=== PATIENT | male | born 1990 | race Caucasian/White ===

== ENCOUNTER 2017-06-13 13:34 | Emergency (ER) | payer OTHER ==
[~2017-06-13] VITALS: Ht 188 cm; Wt 64.0 kg
[2017-06-13 13:46] VITALS: BP 114/58; PULSE 61; RESP 16; TEMP 98.5; O2SAT 97
[2017-06-13] MEDS ORDERED: SODIUM CHLOR 0.9% 1000 ML INJ 1,000 ML IV SCH (14:34)
[2017-06-13] MEDS ORDERED: MORPHINE SULFATE 4 MG/ML INJ IV PUSH ONE ×2 (14:45→15:45)
[2017-06-13] MEDS ORDERED: ONDANSETRON HCL 4 MG/2 ML VIAL IVP ONE (14:45)
[2017-06-13] MEDS ORDERED: FAMOTIDINE 20 MG/2 ML VIAL IV PUSH ONE (14:45)
[2017-06-13] MEDS ORDERED: SODIUM CHLORIDE 0.9% FLUSH 10 ML FLUSH IV FLUSH PRN (14:45)
[2017-06-13 15:03] LABS: AUTOMATED NEUTROPHIL # 10.3 TH/MM3 (1.8-7.7); BASOPHIL # 0.4 TH/MM3 (0-0.2); BASOPHIL % 3.1 % (0.0-2.0); EOSINOPHIL # 0.1 TH/MM3 (0-0.4); EOSINOPHIL % 0.8 % (0.0-4.0); HEMATOCRIT 49.3 % (39.0-51.0); LYMPH % 8.4 % (9.0-44.0); MEAN CELL VOLUME 92.5 FL (80.0-100.0); MEAN CORPUSCULAR HEMOGLOBIN 31.2 PG (27.0-34.0); MEAN CORPUSCULAR HGB CONC 33.7 % (32.0-36.0); MONO % 5.9 % (0.0-8.0); NEUT % 81.8 % (16.0-70.0); PLATELET COUNT 176 TH/MM3 (150-450); RED BLOOD COUNT 5.33 MIL/MM3 (4.50-5.90); RED CELL DISTRIBUTION WIDTH 11.6 % (11.6-17.2); WHITE BLOOD COUNT 12.5 TH/MM3 (4.0-11.0)
[2017-06-13 15:07] LABS: HEMO FLAGS DIFF FINAL
[2017-06-13 15:18] LABS: CHLORIDE 102 MEQ/L (98-107); POTASSIUM 4.4 MEQ/L (3.5-5.1); SODIUM (NA) 138 MEQ/L (136-145)
[2017-06-13 15:23] LABS: ANION GAP 6 MEQ/L (5-15); BICARBONATE 30.3 MEQ/L (21.0-32.0)
[2017-06-13 15:24] LABS: BLOOD UREA NITROGEN 14 MG/DL (7-18)
[2017-06-13 15:26] LABS: ALT (GPT) 22 U/L (12-78); AST (GOT) 15 U/L (15-37); GLOMERULAR FILTRATION RATE 100 ML/MIN (>89)
[2017-06-13 15:28] LABS: TOTAL BILIRUBIN ADULT 0.7 MG/DL (0.2-1.0)
[2017-06-13 15:29] LABS: ALKALINE PHOSPHATASE 62 U/L (45-117)
--- NOTE | 2017-06-13 15:38 | PD ---
HPI Chief Complaint: GI Complaint Time Seen by Provider: 13:53 Travel History International Travel<30 days: No Contact w/Intl Traveler<30days: No Traveled to known affect area: No History of Present Illness HPI The patient is a 27-year-old male who presents to the emergency department via private vehicle for nausea, vomiting, and abdominal pain. The patient states he had hamburger to eat last night that he left that on his kitchen counter for 4 hours to do Major. The patient ate without difficulty, however, awakened at midnight with epigastric abdominal pain and subsequent nausea and vomiting. The patient has persistent nausea and vomiting with mild epigastric abdominal pain that radiates to the back. He denies any associated diarrhea. He denies any fever, chills, sweats, or previous abdominal surgeries. He denies any sick contacts at home. He denies any recent international travel. Symptoms are moderate, possibly exacerbated after eating ground beef, and there are no current alleviating factors. PFSH Past Medical History Arthritis: No Asthma: Yes Autoimmune Disease: No Bipolar Disorder: Yes Anxiety: Yes Depression: Yes (HX OF CUTTING) Heart Rhythm Problems: No Cancer: No Cardiovascular Problems: Yes (IRREG HR) High Cholesterol: No Chest Pain: No Congestive Heart Failure: No COPD: No Cerebrovascular Accident: No Diabetes: No Diminished Hearing: No Endocrine: No Gastrointestinal Disorders: No GERD: No Genitourinary: No Headaches: Yes Hepatitis: No Hiatal Hernia: No Immune Disorder: No Implanted Vascular Access Dvce: Yes Kidney Stones: No Medical other: Yes (NODULES IN SINUS CAVITY, SINUS SURGERY 12/11/11) Musculoskeletal: Yes Neurologic: Yes Psychiatric: Yes (SCHIZOAFFECTIVE D/O & PANIC ATTACKS, MULTIPLE PERSONALITY DISORDER.) Respiratory: Yes (HX ASTHMA) Integumentary: Yes (MRSA LEFT THUMB SEVERAL YEARS AGO. NONE SINCE THEN.) Immunizations Current: Yes Migraines: Yes Myocardial Infarction: No Renal Failure: No Schizophrenia: Yes Seizures: Yes Sleep Apnea: No Thyroid Disease: No Ulcer: No Tetanus Vaccination: < 5 Years PNEUMOCCOCAL Vaccine (Year): 2 Past Surgical History Abdominal Surgery: No AICD: No Appendectomy: Yes Arteriovenous Shunt: No Body Medical Devices: PIERCING X 2 TO LOWER LIP Cardiac Surgery: No Cholecystectomy: No Ear Surgery: No Endocrine Surgery: No Eye Surgery: No Genitourinary Surgery: No Gynecologic Surgery: No Insulin Pump: No Joint Replacement: No Neurologic Surgery: No Pacemaker: No Thoracic Surgery: No Tonsillectomy: Yes (AND ADENOIDS) Other Surgery: Yes (MRSA ON RIGHT TUMB) Social History Alcohol Use: Yes (5-6 BEERS 2X WEEKLY; LAST DRINK 08/21/15) Tobacco Use: Yes (1/2 PPD) Substance Use: Yes (HX OF MARIJUANA, METH, "SHROOMS"; DENIES CURRENT USE) Allergies-Medications (Allergen,Severity, Reaction): Coded Allergies: cinnamon (Unverified Allergy, Severe, ANAPHALAXIS, 06/13/17) haloperidol (Unverified Adverse Reaction, Severe, DYSTONIA, 06/13/17) *MDRO Multi-Drug Resistant Organism (Verified Adverse Reaction, Unknown, ) MRSA (wound) 2008 Reported Meds & Prescriptions Reported Meds & Active Scripts Active No Active Prescriptions or Reported Medications Review of Systems Except as stated in HPI: all other systems reviewed are Neg General / Constitutional: No: Fever Cardiovascular: No: Chest Pain or Discomfort Respiratory: No: Shortness of Breath Gastrointestinal: Positive: Nausea, Vomiting, Abdominal Pain, No: Diarrhea, Constipation, Changes in Bowel Habits Genitourinary: No: Dysuria Musculoskeletal: No: Myalgias Physical Exam Narrative GENERAL: Awake, alert, pleasant 27-year-old male who appears his stated age and is in no acute respiratory distress. SKIN: Focused skin assessment warm/dry. HEAD: Atraumatic. Normocephalic. EYES: Pupils equal and round. No scleral icterus. No injection or drainage. ENT: No nasal bleeding or discharge. Slightly dry mucous members. NECK: Trachea midline. No JVD. CARDIOVASCULAR: Regular rate and rhythm. No murmur appreciated. RESPIRATORY: No accessory muscle use. Clear to auscultation. Breath sounds equal bilaterally. GASTROINTESTINAL: Abdomen soft, minimal epigastric tenderness. No rebound tenderness, guarding, rigidity. Negative Flores's. Negative McBurney's. Back: No CVA tenderness. MUSCULOSKELETAL: No obvious deformities. No clubbing. No cyanosis. No edema. NEUROLOGICAL: Awake and alert. No obvious cranial nerve deficits. Motor grossly within normal limits. Normal speech. PSYCHIATRIC: Appropriate mood and affect; insight and judgment normal. Data Data Last Documented VS Vital Signs Date Time Temp Pulse Resp B/P (MAP) Pulse Ox O2 Delivery O2 Flow Rate FiO2 9/28/17 13:46 98.5 61 16 114/58 (76) 97 Room Air Orders Orders Complete Blood Count With Diff (06/13/17 14:34) Comprehensive Metabolic Panel (06/13/17 14:34) Lipase (06/13/17 14:34) Iv Access Insert/Monitor (06/13/17 14:34) Ecg Monitoring (06/13/17 14:34) Oximetry (06/13/17 14:34) Morphine Inj (Morphine Inj) (06/13/17 14:45) Ondansetron Inj (Zofran Inj) (06/13/17 14:45) Sodium Chlor 0.9% 1000 Ml Inj (Ns 1000 M (06/13/17 14:34) Sodium Chloride 0.9% Flush (Ns Flush) (06/13/17 14:45) Famotidine Inj (Pepcid Inj) (06/13/17 14:45) Labs Laboratory Tests Test 06/13/17 14:55 White Blood Count 12.5 TH/MM3 Red Blood Count 5.33 MIL/MM3 Hemoglobin 16.6 GM/DL Hematocrit 49.3 % Mean Corpuscular Volume 92.5 FL Mean Corpuscular Hemoglobin 31.2 PG Mean Corpuscular Hemoglobin Concent 33.7 % Red Cell Distribution Width 11.6 % Platelet Count 176 TH/MM3 Mean Platelet Volume 9.3 FL Neutrophils (%) (Auto) 81.8 % Lymphocytes (%) (Auto) 8.4 % Monocytes (%) (Auto) 5.9 % Eosinophils (%) (Auto) 0.8 % Basophils (%) (Auto) 3.1 % Neutrophils # (Auto) 10.3 TH/MM3 Lymphocytes # (Auto) 1.0 TH/MM3 Monocytes # (Auto) 0.7 TH/MM3 Eosinophils # (Auto) 0.1 TH/MM3 Basophils # (Auto) 0.4 TH/MM3 CBC Comment DIFF FINAL Differential Comment Blood Urea Nitrogen 14 MG/DL Creatinine 0.91 MG/DL Random Glucose 100 MG/DL Total Protein 7.3 GM/DL Albumin 4.1 GM/DL Calcium Level 9.4 MG/DL Alkaline Phosphatase 62 U/L Aspartate Amino Transf (AST/SGOT) 15 U/L Alanine Aminotransferase (ALT/SGPT) 22 U/L Total Bilirubin 0.7 MG/DL Sodium Level 138 MEQ/L Potassium Level 4.4 MEQ/L Chloride Level 102 MEQ/L Carbon Dioxide Level 30.3 MEQ/L Anion Gap 6 MEQ/L Estimat Glomerular Filtration Rate 100 ML/MIN Lipase 124 U/L [facility] Medical Decision Making Medical Screen Exam Complete: Yes Emergency Medical Condition: Yes Medical Record Reviewed: Yes Interpretation(s) Laboratory Tests Test 06/13/17 14:55 White Blood Count 12.5 TH/MM3 Red Blood Count 5.33 MIL/MM3 Hemoglobin 16.6 GM/DL Hematocrit 49.3 % Mean Corpuscular Volume 92.5 FL Mean Corpuscular Hemoglobin 31.2 PG Mean Corpuscular Hemoglobin Concent 33.7 % Red Cell Distribution Width 11.6 % Platelet Count 176 TH/MM3 Mean Platelet Volume 9.3 FL Neutrophils (%) (Auto) 81.8 % Lymphocytes (%) (Auto) 8.4 % Monocytes (%) (Auto) 5.9 % Eosinophils (%) (Auto) 0.8 % Basophils (%) (Auto) 3.1 % Neutrophils # (Auto) 10.3 TH/MM3 Lymphocytes # (Auto) 1.0 TH/MM3 Monocytes # (Auto) 0.7 TH/MM3 Eosinophils # (Auto) 0.1 TH/MM3 Basophils # (Auto) 0.4 TH/MM3 CBC Comment DIFF FINAL Differential Comment Blood Urea Nitrogen 14 MG/DL Creatinine 0.91 MG/DL Random Glucose 100 MG/DL Total Protein 7.3 GM/DL Albumin 4.1 GM/DL Calcium Level 9.4 MG/DL Alkaline Phosphatase 62 U/L Aspartate Amino Transf (AST/SGOT) 15 U/L Alanine Aminotransferase (ALT/SGPT) 22 U/L Total Bilirubin 0.7 MG/DL Sodium Level 138 MEQ/L Potassium Level 4.4 MEQ/L Chloride Level 102 MEQ/L Carbon Dioxide Level 30.3 MEQ/L Anion Gap 6 MEQ/L Estimat Glomerular Filtration Rate 100 ML/MIN Lipase 124 U/L Differential Diagnosis Differential diagnosis includes gastritis, gastroenteritis, viral syndrome, food poisoning, pancreatitis, biliary colic, peptic ulcer disease, atypical appendicitis. Narrative Course IV was established, labs are drawn and sent, and the patient was placed on cardiac telemetry monitoring and continuous pulse oximetry monitoring. The patient was administered morphine, Zofran, Pepcid, and IV fluids. The patient' s white count is minimally elevated at 12.5, LFTs and lipase are unremarkable. The patient was reevaluated at 3:40 PM, still had mild epigastric pain but nausea and improved. The patient was redosed with morphine. I do not believe the patient has an acute surgical abdomen, most likely peptic ulcer versus gastritis versus food poisoning. The patient will be discharged home on Zofran and advised to have a clear liquid diet. He is advised to return if symptoms worsen or progress. Diagnosis Primary Impression: Gastritis Qualified Codes: K29.00 - Acute gastritis without bleeding Additional Impression: Abdominal pain Qualified Codes: R10.13 - Epigastric pain Patient Instructions: General Instructions Additional Instructions: Please provide the patient a copy of his labs at discharge. Zofran as directed. Clear liquid diet and advance as tolerated. Follow-up with her primary physician. Return if symptoms worsen or progress. Med/Other Pt SpecificInfo: Prescription(s) given Scripts Ondansetron Odt (Zofran Odt) 4 Mg Tab 4 MG SL Q6HR Y for Nausea/Vomiting, #10 TAB 0 Refills Prov: James Campos MD 06/13/17 Ranitidine (Zantac 150 Maximum Strength) 150 Mg Tab 150 MG PO BID, #30 TAB Prov: James Campos MD 06/13/17 Disposition: 01 DISCHARGE HOME Condition: Stable James Campos MD Jun 13, 2017 15:38
[2017-06-13] MEDS ORDERED: ZOFR4TAB3 SL (15:43)
[2017-06-13] MEDS ORDERED: ZANTTAB PO (15:43)
[2017-06-13] MEDS ORDERED: SODIUM CHLOR 0.9% 1000 ML INJ 1,000 ML IV ONE (15:45)
[2017-06-13 16:55] VITALS: BP 120/68
== END 2017-06-13 16:57 | disposition home or self-care (01) ==
LOC: PHED 13:34
DX: K29.00 Acute gastritis without bleeding (principal); F17.200 Nicotine dependence, unspecified, uncomplicated
CPT/HCPCS: 80053; 83690; 85025; 96361; 96374; 96375; 96376; 99284; J2270; J2405; J7030

== ENCOUNTER 2017-10-29 20:54 | Emergency (ER) | payer OTHER ==
[~2017-10-29 20:54] MED LIST: ZANTTAB PO; ZOFR4TAB3 SL
[2017-10-29 20:57] VITALS: BP 150/91; PULSE 73; RESP 16; TEMP 98.3; O2SAT 100
[2017-10-29 21:25] VITALS: BP 120/70; PULSE 73; RESP 16; O2SAT 97
[2017-10-29 22:04] LABS: BILIRUBIN, URINE NEG (NEG); BLOOD, URINE NEG (NEG); GLUCOSE,URINE NEG (NEG); KETONE, URINE NEG (NEG); NITRITE,URINE NEG (NEG); URINE LEUKOCYTE ESTERASE NEG (NEG)
--- NOTE | 2017-10-29 22:12 | PD ---
HPI Chief Complaint: Numbness/Tingling Time Seen by Provider: 21:48 Travel History International Travel<30 days: No Contact w/Intl Traveler<30days: No Traveled to known affect area: No History of Present Illness HPI Patient is a 27-year-old male recovering IV drug abuser has not had any IV drugs in 7 years presents to the emergency department for evaluation of multiple complaints. His chief complaint is actually of a syncopal episode he had while babysitting his young child. States he had a little tingling on the left side of his chest but cannot explain it further. He denies any chest pain shortness of breath now. Denies any fevers. He also states he has been just feeling some numbness and tingling in all 4 extremities, he is also been complaining of low back pain for the past 2 years but states that this is not what caused him to come into the emergency department today. Symptoms are mild , resolved, associated sinus symptoms and context as above. PFSH Past Medical History Arthritis: No Asthma: Yes Autoimmune Disease: No Bipolar Disorder: Yes Anxiety: Yes Depression: Yes (HX OF CUTTING) Heart Rhythm Problems: No Cancer: No Cardiovascular Problems: Yes (IRREG HR) High Cholesterol: No Chest Pain: No Congestive Heart Failure: No COPD: No Cerebrovascular Accident: No Diabetes: No Diminished Hearing: No Endocrine: No Gastrointestinal Disorders: No GERD: No Genitourinary: No Headaches: Yes Hepatitis: No Hiatal Hernia: No Immune Disorder: No Implanted Vascular Access Dvce: Yes Kidney Stones: No Medical other: Yes (NODULES IN SINUS CAVITY, SINUS SURGERY 12/11/11) Musculoskeletal: Yes (NECK INJURY) Neurologic: Yes (PTSD/OCD DENIES ANY OTHER PSYCH ISSUES) Psychiatric: Yes (SCHIZOAFFECTIVE D/O & PANIC ATTACKS, MULTIPLE PERSONALITY DISORDER.) Respiratory: Yes (HX ASTHMA) Integumentary: Yes (MRSA LEFT THUMB SEVERAL YEARS AGO. NONE SINCE THEN.) Immunizations Current: Yes Migraines: Yes Myocardial Infarction: No Renal Failure: No Schizophrenia: Yes Seizures: Yes Sleep Apnea: No Thyroid Disease: No Ulcer: No Influenza Vaccination: No PNEUMOCCOCAL Vaccine (Year): 2 ?: Not Past Surgical History Abdominal Surgery: No AICD: No Appendectomy: Yes Arteriovenous Shunt: No Body Medical Devices: PIERCING X 2 TO LOWER LIP Cardiac Surgery: No Cholecystectomy: No Ear Surgery: No Endocrine Surgery: No Eye Surgery: No Genitourinary Surgery: No Gynecologic Surgery: No Insulin Pump: No Joint Replacement: No Neurologic Surgery: No Oral Surgery: Yes (LEFT SINUS SURGERY) Pacemaker: No Thoracic Surgery: No Tonsillectomy: Yes (AND ADENOIDS) Other Surgery: Yes (MRSA ON RIGHT TUMB, RHINOPLASTY) Social History Alcohol Use: Yes (5-6 BEERS 2X WEEKLY) Tobacco Use: Yes (1/2 PPD) Substance Use: Yes (HX OF MARIJUANA, METH, "SHROOMS". NONE SINCE 2009) Allergies-Medications (Allergen,Severity, Reaction): Coded Allergies: cephalexin (Verified Allergy, Severe, RASH, 10/29/17) cinnamon (Unverified Allergy, Severe, ANAPHALAXIS, 10/29/17) haloperidol (Unverified Adverse Reaction, Severe, DYSTONIA, 10/29/17) *MDRO Multi-Drug Resistant Organism (Verified Adverse Reaction, Unknown, ) MRSA (wound) 2008 Reported Meds & Prescriptions Reported Meds & Active Scripts Active No Active Prescriptions or Reported Medications Review of Systems Except as stated in HPI: all other systems reviewed are Neg Physical Exam Narrative GENERAL: Well-developed well-nourished, multiple facial piercings and body tattoos. No obvious distress. SKIN: Focused skin assessment warm/dry. There are well healed presumably self- inflicted wounds to bilateral wrists. HEAD: Atraumatic. Normocephalic. EYES: Pupils equal and round. No scleral icterus. No injection or drainage. ENT: No nasal bleeding or discharge. Mucous membranes pink and moist. NECK: Trachea midline. No JVD. CARDIOVASCULAR: Regular rate and rhythm. No murmur appreciated. RESPIRATORY: No accessory muscle use. Clear to auscultation. Breath sounds equal bilaterally. GASTROINTESTINAL: Abdomen soft, non-tender, nondistended. Hepatic and splenic margins not palpable. MUSCULOSKELETAL: No obvious deformities. No clubbing. No cyanosis. No edema. No midline CT or L-spine tenderness NEUROLOGICAL: Awake and alert. No obvious cranial nerve deficits. Motor grossly within normal limits. Normal speech. PSYCHIATRIC: Appropriate mood and affect; insight and judgment normal. Data Data Last Documented VS Vital Signs Date Time Temp Pulse Resp B/P (MAP) Pulse Ox O2 Delivery O2 Flow Rate FiO2 10/30/17 00:15 10/29/17 23:45 63 16 99 Room Air 10/29/17 20:57 98.3 Orders Orders Urinalysis - C+S If Indicated (10/29/17 21:38) Gc And Chlamydia Pcr (10/29/17 21:38) Electrocardiogram (10/29/17 22:09) Basic Metabolic Panel (Bmp) (10/29/17 22:09) Complete Blood Count With Diff (10/29/17 22:09) Troponin I (10/29/17 22:09) Ecg Monitoring (10/29/17 22:09) Iv Access Insert/Monitor (10/29/17 22:09) Oximetry (10/29/17 22:09) Sodium Chloride 0.9% Flush (Ns Flush) (10/29/17 22:15) Ed Discharge Order (10/29/17 23:48) Labs Laboratory Tests Test 10/29/17 21:30 10/29/17 22:15 Urine Color YELLOW Urine Turbidity CLEAR Urine pH 6.0 Urine Specific [place] 1.010 Urine Protein NEG mg/dL Urine Glucose (UA) NEG mg/dL Urine Ketones NEG mg/dL Urine Occult Blood NEG Urine Nitrite NEG Urine Bilirubin NEG Urine Leukocyte Esterase NEG Urine Squamous Epithelial Cells 0-5 /hpf Microscopic Urinalysis Comment CULT NOT INDICATED Chlamydia trachomatis DNA (PCR) NOT DETECTED Neisseria gonorrhoeae DNA (PCR) NOT DETECTED White Blood Count 6.0 TH/MM3 Red Blood Count 4.82 MIL/MM3 Hemoglobin 15.3 GM/DL Hematocrit 44.7 % Mean Corpuscular Volume 92.8 FL Mean Corpuscular Hemoglobin 31.8 PG Mean Corpuscular Hemoglobin Concent 34.3 % Red Cell Distribution Width 12.4 % Platelet Count 191 TH/MM3 Mean Platelet Volume 9.0 FL Neutrophils (%) (Auto) 60.8 % Lymphocytes (%) (Auto) 27.7 % Monocytes (%) (Auto) 8.9 % Eosinophils (%) (Auto) 1.6 % Basophils (%) (Auto) 1.0 % Neutrophils # (Auto) 3.6 TH/MM3 Lymphocytes # (Auto) 1.7 TH/MM3 Monocytes # (Auto) 0.5 TH/MM3 Eosinophils # (Auto) 0.1 TH/MM3 Basophils # (Auto) 0.1 TH/MM3 CBC Comment DIFF FINAL Differential Comment Blood Urea Nitrogen 11 MG/DL Creatinine 0.87 MG/DL Random Glucose 82 MG/DL Calcium Level 8.6 MG/DL Sodium Level 139 MEQ/L Potassium Level 3.6 MEQ/L Chloride Level 102 MEQ/L Carbon Dioxide Level 32.4 MEQ/L Anion Gap 5 MEQ/L Estimat Glomerular Filtration Rate 105 ML/MIN Troponin I LESS THAN 0.02 NG/ML MDM Medical Decision Making Medical Screen Exam Complete: Yes Emergency Medical Condition: Yes Differential Diagnosis Syncope, anemia, arrhythmia, ACS highly likely, a mildly unlikely, epidural abscess highly unlikely. Narrative Course Patient room to the emergency department, he appears well on and off of the chest distress, basic workup in the emergency department including EKG CBC CMP negative, neurologically nonfocal and afebrile and has not used IV drugs in several years, the patient is reassured, at this time he can pursue further workup for syncope as an outpatient basis. Briefly considered epidural abscess given his numbness and tingling however his symptoms are not consistent with an epidural abscess and has not used IV drugs in several years. Discussed return to ED criteria. Diagnosis Primary Impression: Syncope Additional Impression: Dysuria Referrals: [facility] No Active Prescriptions or Reported Meds Disposition: 01 DISCHARGE HOME Condition: Stable Pako Dawn MD Oct 29, 2017 22:12
[2017-10-29 22:15] LABS: URINE COLOR YELLOW (YELLW/STRAW)
[2017-10-29] MEDS ORDERED: SODIUM CHLORIDE 0.9% FLUSH 10 ML FLUSH IVF PRN (22:15)
[2017-10-29 22:17] LABS: SQUAMOUS EPITHELIAL CELL URINE 0-5 /hpf (0-5)
[2017-10-29 22:23] LABS: AUTOMATED NEUTROPHIL # 3.6 TH/MM3 (1.8-7.7); BASOPHIL # 0.1 TH/MM3 (0-0.2); EOSINOPHIL # 0.1 TH/MM3 (0-0.4); EOSINOPHIL % 1.6 % (0.0-4.0); HEMATOCRIT 44.7 % (39.0-51.0); HEMOGLOBIN 15.3 GM/DL (13.0-17.0); LYMPH % 27.7 % (9.0-44.0); LYMPHOCYTE # 1.7 TH/MM3 (1.0-4.8); MEAN CELL VOLUME 92.8 FL (80.0-100.0); MEAN CORPUSCULAR HEMOGLOBIN 31.8 PG (27.0-34.0); MEAN CORPUSCULAR HGB CONC 34.3 % (32.0-36.0); MONO % 8.9 % (0.0-8.0); MONOCYTE # 0.5 TH/MM3 (0-0.9); NEUT % 60.8 % (16.0-70.0); PLATELET COUNT 191 TH/MM3 (150-450); RED BLOOD COUNT 4.82 MIL/MM3 (4.50-5.90); RED CELL DISTRIBUTION WIDTH 12.4 % (11.6-17.2)
[2017-10-29 22:32] LABS: CHLORIDE 102 MEQ/L (98-107); SODIUM (NA) 139 MEQ/L (136-145)
[2017-10-29 22:34] LABS: BICARBONATE 32.4 MEQ/L (21.0-32.0); CALCIUM 8.6 MG/DL (8.5-10.1); GLUCOSE,RANDOM 82 MG/DL (74-106)
[2017-10-29 22:35] LABS: BLOOD UREA NITROGEN 11 MG/DL (7-18)
[2017-10-29 22:38] LABS: CREATININE 0.87 MG/DL (0.60-1.30); GLOMERULAR FILTRATION RATE 105 ML/MIN (>89)
[2017-10-29 22:42] LABS: TROPONIN I LESS THAN 0.02 NG/ML (0.02-0.05)
[2017-10-29 23:45] VITALS: BP 115/64; PULSE 63; RESP 16; O2SAT 99
--- NOTE | 2017-10-30 21:26 | EKG ---
Date Performed: 10/29/2017 Time Performed: 22:16:39 PTAGE: 27 years EKG: Sinus rhythm NORMAL ECG PREVIOUS TRACING : 12/06/2013 06.41 Since the prior tracing, there has been no significant duarte DOCTOR: Aren Adam Interpretating Date/Time 10/30/2017 21:24:54
== END 2017-10-30 00:16 | disposition home or self-care (01) ==
LOC: PHED 20:54
DX: R55 Syncope and collapse (principal); R30.0 Dysuria; F17.210 Nicotine dependence, cigarettes, uncomplicated; F20.9 Schizophrenia, unspecified; J45.909 Unspecified asthma, uncomplicated; F31.9 Bipolar disorder, unspecified
CPT/HCPCS: 80048; 81001; 84484; 85025; 87491; 87591; 93005; 99284